=== PATIENT | female | born 1980 | race Hispanic/Latino ===

== ENCOUNTER → 2022-03-17 | Outpatient (CLI) | payer OTHER ==
[~2022-03-17] MED LIST: IOPAMIDOL 300 MG/ML 15ML VIAL IT ONE
== END ==
LOC: DX 09:15
PROVIDERS: ATTEND Obstetrics & Gynecology
DX: N97.9 Female infertility, unspecified (principal)
CPT/HCPCS: 74740; 81025; Q9967